=== PATIENT | female | born 1970 | race Caucasian/White ===

== ENCOUNTER → 2022-11-04 | Outpatient (CLI) | payer BC ==
--- NOTE | 2022-11-05 20:56 | MR ---
EXAMINATION TYPE: MR pelvis wo/w con DATE OF EXAM: 11/04/2022 COMPARISON: None CLINICAL INDICATION:Female, 51 years old with history of R19.00 INTRA-ABD AND PELVIC SWELLING, MASS A ND LUM; Pt had xray of lumbar and showed mass in pelvis, Hx hysterectomy, Intra Abd/Pelvic Swelling TECHNIQUE: Triplane multisequence imaging was performed of the pelvis. IV Contrast: 10 cc Gadavist FINDINGS: Reproductive: Vagina: Unremarkable. Uterus: Surgically absent Ovaries: Left ovarian cyst measuring up to 2.9 x 2.5 cm. Left ovary measures in totality 4.3 x 3.1 x 4.0 cm including the cyst. The right ovary measures smaller measuring 1.8 x 1.2 by 1.4 cm. There is a low T1/low T2 signal lesion in the pelvis measuring 4.2 x 4.1 x 3.6 cm. There is internal enhancement more so appreciated on the fat-saturated sequence and most pronounced along the periphery . This does abut the intestines is in close proximity to the ovarian vessels. Bladder: Grossly unremarkable. Partially distended Bowel: Scattered colonic diverticula are present. Peritoneum: No adenopathy or free fluid. Lymph nodes: No evidence of adenopathy. Vasculature: Unremarkable. Musculoskeletal: Bone marrow signal is within normal signal intensity. Abdominal wall/soft tissues: Unremarkable. IMPRESSION: 1. Right-sided pelvic mass which is low T1/T2 signal with thin peripheral enhancement unclear whethe r this is left over pedunculated fibroid versus ovarian neoplasms. Given its signal characteristics a fibroma, thecoma or fibrothecoma versus if this is from the small bowel/intestines which is abutting it may represent gastrointestinal stromal tumor. There were no priors to correlate. 2. Left ovarian simple appearing cyst measuring up to 2.9 cm. 3. Extensive Colonic diverticulosis.
== END | disposition home or self-care (01) ==
LOC: RADMRIMAIN 15:15
PROVIDERS: ATTEND Family Medicine
DX: K57.30 Diverticulosis of large intestine without perforation or abscess without bleeding (principal); R19.00 Intra-abdominal and pelvic swelling, mass and lump, unspecified site
CPT/HCPCS: 72197; A9585

== ENCOUNTER 2024-01-08 11:38 | Day surgery (SDC) | payer BC ==
[2024-01-08] MEDS: IV FLUID CONTINUATION 1,000 ML IV ONE (12:16)
[2024-01-08 12:18] VITALS: TEMP 97.7
[2024-01-08] MEDS: LACTATED RINGERS 1,000 ML IV SCH (12:20)
[2024-01-08] MEDS ORDERED: PROPOFOL 10 MG/ML 20 ML VIAL IV ONE (13:23)
--- NOTE | 2024-01-08 13:48 | P.PCN ---
Date of Procedure: 01/08/24 Procedure(s) Performed: BRIEF HISTORY: Patient is a 53-year-old pleasant white female scheduled for an elective colonoscopy as a part of screening for colon cancer. PROCEDURE PERFORMED: Colonoscopy snare polypectomy PREOPERATIVE DIAGNOSIS: Screening for colon cancer. IV sedation per Anesthesia. PROCEDURE: After informed consent was obtained, the patient, was brought into the endoscopy unit. IV sedation was administered by Anesthesia under continuous monitoring. Digital rectal examination was normal. Initially the Olympus CF-160 flexible video colonoscope was then inserted in the rectum, gradually advanced into the cecum without any difficulty. Careful examination was performed as the scope was gradually being withdrawn. Ileocecal valve and the appendiceal orifice were visualized and appeared normal. Prep was excellent. Mucosa of the cecum, appeared normal. In the ascending colon there was a 1 cm polyp that was removed by snare polypectomy. In the ascending colon there was a 1 cm polyp that was removed by snare polypectomy. He may BiFlexy there was another 1 cm polyp removed by snare polypectomy. Rest of the, transverse colon, descending colon, sigmoid colon, and rectum appeared normal. Rectum there was a 5 mm polyp that was removed by cold snare polypectomy. Scattered sigmoid diverticulosis seen. Retroflexion was performed in the rectum and no lesions were seen. The patient tolerated the procedure well. IMPRESSION: 1 cm ascending colon polyp status post polypectomy 1 cm hepatic flexure polyp status post polypectomy 5 mm rectal polyp status post polypectomy Scattered sigmoid diverticulosis. RECOMMENDATIONS: Findings of this examination were discussed with the patient as well as her family. She was advised to follow-up with the biopsy results. If the biopsy reveals adenoma she can have repeat colonoscopy in 3 years.
[2024-01-08 13:54] VITALS: RESP 12
[2024-01-08 14:25] VITALS: BP 121/64; PULSE 77
== END 2024-01-08 14:24 | disposition home or self-care (01) ==
LOC: ORWHC2ENDO 11:38
PROVIDERS: ATTEND Internal Medicine Gastroenterology
DX: Z12.11 Encounter for screening for malignant neoplasm of colon (principal); D12.2 Benign neoplasm of ascending colon; D12.3 Benign neoplasm of transverse colon; K62.1 Rectal polyp; K57.30 Diverticulosis of large intestine without perforation or abscess without bleeding; E07.9 Disorder of thyroid, unspecified; E78.5 Hyperlipidemia, unspecified; F17.210 Nicotine dependence, cigarettes, uncomplicated; Z79.890 Hormone replacement therapy; Z85.828 Personal history of other malignant neoplasm of skin; Z79.899 Other long term (current) drug therapy
CPT/HCPCS: 88305; 45385; J2704